=== PATIENT | male | born 1955 | race Caucasian/White ===

== ENCOUNTER → 2017-04-14 | Outpatient (CLI) | payer MEDICARE, OTHER ==
[~2017-04-14] MED LIST: ACETAMINOPHEN PO; ANTIFUNGAL30 GM TP; ASPIRIN PO; BACLOFEN PO; BACLOFEN10 MG PO; BENADRYL25 MG PO; CERTAGEN PO; CIPRO PO; CLEOCIN HCL300 M1 PO; COLACE PO; COUMADIN1 MG PO; COUMADIN2.5 MG PO; COUMADIN5 MG PO; DITROPAN PO; DITROPAN5 MG PO; DOCUSATE SODIUM PO; FLONASE 0.05% N16 G1 IN; FLUTICASONE; HYDROCODONE 7.5/325 PO; IBUPROFEN PO; KETOCONAZOLE120 ML TOP; LORTAB 7.5-5001 TAB PO; LOTRIMIN AF12 GM TOP; MACROBID PO; METOPROLOL PO; MUCINEX PO; MULTIVITAMIN PO; NATURAL E PO; NORMAL SALINE; NYSTATIN1 GM MC; PHENERGAN IM; TOPROL XL PO; TYLENOL PO; VIT E PO; VITAMIN C PO; VITAMIN C500 MG PO; VITAMIN D 3 PO
--- NOTE | ~2017-04-14 | CT57 ---
[facility] A Service of [facility] & [facility] RADIOLOGY TEXT RESULTS PATIENT: MARLON FONSECA LOCATION: [facility] : 55 UNIT #: [id number] AGE: [address]: Nahomy Jones MD SEX: M ORDER DR: [id number] [address] [address] [id number] O MR#: [id number] Acc #: [id number] NAME: MARLON FONSECA : 1955 SEX: M STUDY DATE/TIME: 04/14/2017 11:28 UNIT: [facility] ROOM: STUDY DESCRIPTION: CT Chest Wo Cont Attending Physician: Nahomy Jones M.D. Referring Physician: Nahomy Jones M.D. Ordering Physician: Nahomy Jones M.D. Primary Care Physician: Nahomy Jones M.D. MEDICAL IMAGING REPORT This report is preliminary unless electronic signature is present. EXAM CT chest without contrast, 04/14/2017 HISTORY 61-year-old male with cough, congestion, shortness of breath and low oxygen saturations for a few days. Multiple bouts of pneumonia. Quadriplegia. COMPARISON CT chest without contrast, 08/06/2016. PROCEDURE 2-mm noncontrast axial images through the chest. Sagittal and coronal reformatted images were obtained. This CT exam was performed with one or more of the following radiation dose reduction techniques: automatic exposure control, adjustment of mA and/or kV according to patient size, and iterative reconstruction. FINDINGS Moderate bilateral pleural effusions have developed, the dominant on the right layering to a depth of 4.8 cm. There is complete atelectasis or consolidation within the right lower lobe. There is partial airspace disease in the left lower lobe, which may represent atelectasis or pneumonia. Patchy alveolar density is present in the left lung apex. No pericardial effusion is seen. Cardiac enlargement appears slightly increased since the previous study. Mildly enlarged prevascular lymph node measuring 1 cm short axis is similar to the 11/01/2015 examination and is favored to represent benign finding. Fusiform aneurysmal dilation of the thoracic aorta, 4.3 cm in the ascending segment, 3.1 cm in the descending segment, not thought to be significantly changed. Surgical changes in the left upper quadrant of the abdomen. Included portions of the upper abdominal organs have a normal noncontrast STS. [facility] A Service of [facility] RADIOLOGY TEXT RESULTS PATIENT: MARLON FONSECA LOCATION: [facility] : 55 UNIT #: [id number] AGE: [address]: Nahomy Jones MD SEX: M ORDER DR: appearance. Left arm approach PICC extends into the SVC. No visible pneumothorax. Degenerative changes in the spine. No acute or suspicious osseous abnormalities. IMPRESSION 1. Moderate bilateral pleural effusions, right greater than left, with right greater left basilar consolidations or atelectasis. 2. Patchy parenchymal density in the left lung apex. Correlate clinically for pneumonia. 3. Moderate cardiac enlargement appears slightly increased compared to the more recent CT chest from 08/06/2016. 4. Stable fusiform aneurysmal dilation of the ascending and descending thoracic aorta, when measured in a comparable fashion and carefully compared to the more remote 11/01/2015 examination. Dictated by... Rubia Wheeler M.D. THIS IS AN ELECTRONICALLY VERIFIED REPORT Rubia Wheeler M.D. at 04/15/2017 9:41 AM Kiki TD: 04/14/2017 15:56 JOB #: [id number] MEDICAL IMAGING REPORT Page 1 of 1
== END | disposition home or self-care (01) ==
LOC: SCT 11:08
DX: R05 Cough (principal); R06.02 Shortness of breath; R09.89 Other specified symptoms and signs involving the circulatory and respiratory systems; J90 Pleural effusion, not elsewhere classified; I71.2 Thoracic aortic aneurysm, without rupture; J98.4 Other disorders of lung; I51.7 Cardiomegaly
CPT/HCPCS: 71250

== ENCOUNTER → 2017-05-11 | Outpatient (CLI) | payer MEDICARE, OTHER ==
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
== END | disposition home or self-care (01) ==
LOC: SCT 13:00
DX: R05 Cough (principal); J90 Pleural effusion, not elsewhere classified; J94.8 Other specified pleural conditions; I71.2 Thoracic aortic aneurysm, without rupture
CPT/HCPCS: 71250